=== PATIENT | male | born 1965 | race Caucasian/White ===

== ENCOUNTER → 2016-12-04 | Outpatient (CLI) | payer MEDICAID ==
--- NOTE | 2016-12-04 13:00 | NM ---
EXAMINATION TYPE: NM stress cardiolite complete DATE OF EXAM: 12/04/2016 COMPARISON: NONE HISTORY: Exertional dyspnea TECHNIQUE: After the intravenous administration of 10.3 mCi Tc 99m Sestamibi - Rest images obtained 45 minutes post injection. The patient exercised using a DONNA protocol and 1 minute prior to peak exercise was injected with 25.0 mCi Tc 99m Sestamibi - Stress images obtained 20 minutes post injecti on. FINDINGS: Targeted heart rate was achieved during performance of the study. Review of stress and rest SPECT antonieta ges demonstrates no distinct perfusion abnormality. Gated analysis shows normal wall motion with an estimated left ventricular ejection fraction of 70 %. IMPRESSION: No scintigraphic evidence for reversible ischemia. Consider echocardiography correlation for elevated ejection fraction
--- NOTE | 2016-12-04 14:20 | EST ---
DATE OF SERVICE: 12/07/2016 TYPE OF REPORT: DONNA CARDIOLITE STRESS TEST INDICATION: Chest pain. BASELINE HEART RATE: 81 BASELINE BLOOD PRESSURE: 130/88 MAXIMUM HEART RATE: 168 MAXIMUM BLOOD PRESSURE: 182/72 85% MPHR: 144 100% MPHR: 169 METS: - MAXIMUM STAGE REACHED: III TOTAL EXERCISE TIME: 11:00 Baseline EKG reveals normal sinus rhythm without significant ST-T changes. The patient walked on standard Donna protocol for a total duration of 11 minutes, achieved a maximum heart rate of 168 beats per minute, well above 85% of predicted maximum. Developed fatigue and shortness of breath but did not have any angina or arrhythmia. EKG did not reveal any ST-segment changes to indicate ischemia. IMPRESSION: 1. By EKG criteria, this is a negative stress test with excellent exercise capacity. 2. The nuclear scan results which are more pertinent, will be reported by the radiologist. CHET
--- NOTE | 2016-12-05 10:43 | ECHOF ---
Referral Reason:R06.09 Exertional Dyspnea MEASUREMENTS -------- HEIGHT: 162.6 cm WEIGHT: 84.8 kg BP: 117/69 IVSd: 0.9 cm (0.6 - 1.1) LVIDd: 3.6 cm (3.9 - 5.3) LVPWd: 1.1 cm (0.6 - 1.1) IVSs: 1.6 cm LVIDs: 2.8 cm LVPWs: 1.2 cm Ao Diam: 3.2 cm (2.0 - 3.7) AV Cusp: 2.0 cm (1.5 - 2.6) LA Diam: 2.7 cm (2.7 - 3.8) MV EXCURSION: 8.330 mm (> 18.000) MV EF SLOPE: 98 mm/s (70 - 150) EPSS: 0.8 cm MV E Jayro: 0.71 m/s MV DecT: 228 ms MV A Jayro: 0.77 m/s MV E/A Ratio: 0.92 RAP: 5.00 mmHg RVSP: 9.86 mmHg FINDINGS -------- Sinus rhythm. This was a technically good study. Left ventricular wall thickness is normal. Overall left ventricular systolic function is normal with, an EF between 55 - 60 %. The right ventricle is normal in size and function. The left atrium is normal in size. The right atrium is normal in size. The aortic valve is trileaflet, and appears structurally normal. No aortic stenosis or regurgitation. Mild mitral regurgitation is present. The tricuspid valve appears structurally normal. Pulmonic valve appears structurally normal. The aortic root size is normal. Normal inferior vena cava with normal inspiratory collapse consistent with estimated right atrial pressure of 5 mmHg. The pericardium is normal. CONCLUSIONS -------- 1. Sinus rhythm. 2. The tricuspid valve appears structurally normal. 3. Pulmonic valve appears structurally normal. 4. The aortic root size is normal. 5. Normal inferior vena cava with normal inspiratory collapse consistent with estimated right atrial pressure of 5 mmHg. 6. The pericardium is normal. 7. This was a technically good study. 8. Left ventricular wall thickness is normal. 9. Overall left ventricular systolic function is normal with, an EF between 55 - 60 %. 10. The right ventricle is normal in size and function. 11. The left atrium is normal in size. 12. The right atrium is normal in size. 13. The aortic valve is trileaflet, and appears structurally normal. No aortic stenosis or regurgitation. 14. Mild mitral regurgitation is present. [employer]: Herlinda Mckeon RDCS
== END | disposition home or self-care (01) ==
LOC: RADNMMAIN 08:27
PROVIDERS: ATTEND Family Medicine
DX: I34.0 Nonrheumatic mitral (valve) insufficiency (principal)
CPT/HCPCS: 93017; 93225; 93226; 93306; 78452; A9500